=== PATIENT | male | born 1950 | race Caucasian/White ===

== ENCOUNTER → 2020-06-09 08:30 | Outpatient (BNVA) | payer MEDICARE, BC, SELFPAY | PROVIDERS: Family Provider Internal Medicine; PCP Internal Medicine; Visit Provider Internal Medicine | DX: Z00.00 Encounter for general adult medical examination without abnormal findings (principal); R97.20 Elevated prostate specific antigen [PSA] | CPT/HCPCS: 80053; 80061; 84153; 84403; 85025 ==

== ENCOUNTER → 2021-01-20 08:39 | Outpatient (BNVA) | payer MEDICARE, BC, SELFPAY | PROVIDERS: Family Provider Internal Medicine; PCP Internal Medicine; Visit Provider Internal Medicine | DX: R97.20 Elevated prostate specific antigen [PSA] (principal) | CPT/HCPCS: 84153 ==

== ENCOUNTER 2021-03-07 04:35 | Emergency (ER) | payer MEDICARE, BC, SELFPAY ==
[2021-03-07 04:44] VITALS: BP 129/74; PULSE 95; RESP 16; TEMP 37.6; O2SAT 94; BMI 35.1
--- NOTE | 2021-03-07 04:44 | CTR_ITS ---
PROCEDURE INFORMATION: Exam: CT Abdomen And Pelvis Without Contrast Exam date and time: 03/07/2021 4:44 AM Age: 70 years old Clinical indication: Other: Low back pain; Prior surgery; Surgery date: 6+ months; Surgery type: Appy, hernia, RT hip; Additional info: Flank pain TECHNIQUE: Imaging protocol: Computed tomography of the abdomen and pelvis without contrast. Radiation optimization: All CT scans at this facility use at least one of these dose optimization techniques: automated exposure control; mA and/or kV adjustment per patient size (includes targeted exams where dose is matched to clinical indication); or iterative reconstruction. COMPARISON: CT abdomen pelvis w con* [id number] 03/03/2017 5:47 AM RADIATION DOSE METRICS: Total DLP (mGy-cm): 1844.27 FINDINGS: Lungs: The lung bases are clear. No effusion Liver: Normal. No mass. Gallbladder and bile ducts: No wall thickening, pericholecystic fluid or stones. Pancreas: Normal. No ductal dilation. Spleen: Normal. No splenomegaly. Adrenal glands: Normal. No mass. Kidneys and ureters: Normal. No hydronephrosis. Stomach and bowel: Diverticulosis without diverticulitis. Appendix: Appendix has been removed. Intraperitoneal space: Unremarkable. No free air. No significant fluid collection. Vasculature: Unremarkable. No abdominal aortic aneurysm. Lymph nodes: Unremarkable. No enlarged lymph nodes. Urinary bladder: Unremarkable as visualized. Reproductive: Unremarkable as visualized. Bones/joints: There is a right hip prosthesis which obscures portions of the pelvis due to streak artifact. Soft tissues: Fat containing umbilical hernia. CT/CT kidney stone [id number] IMPRESSION: 1. No cause for acute pain is identified. 2. Diverticulosis without diverticulitis. 3. Fat containing umbilical hernia. Radiation Dose CTDIVOL = (mGy): DLP = 1844.27 (mGy-cm)
--- NOTE | 2021-03-07 05:07 | W.ED.MALEGU ---
Documented by User: Carlos Manuel Machado DO 03/07/21 06:03 HPI - Male Genitourinary General: Chief complaint: Urogenital-Male Stated complaint: FEELS LIKE KIDNEY PAIN Time Seen by Provider: 03/07/21 04:44 History of Present Illness: HPI Narrative: 70-year-old male with a history of pyelonephritis and urosepsis. He presents with bilateral flank pain that started last night, and is worsened across the night. He began to get chills and body aches as well through the night. He notes that his back and kidneys hurt 1 day last week, but he did not have the chills or the nausea he has now. Complaint: other Onset (ago): hour(s) Duration: constant and progressively worsening Location: right flank and left flank Severity: moderate Quality: aching Relieving factors: none Exacerbating factors: none Associated symptoms: Reports fevers/chills, nausea and other; Deny hematuria, rash or vomiting Review of Systems Const: Reports: chills and body aches; Denies: fever(s) Card: Denies: chest pain or palpitations Resp: Denies: dyspnea, productive cough, non-productive cough or wheezing GI: Reports: abdominal pain and nausea; Denies: vomiting : Reports: flank pain, urinary frequency and urinary urgency; Denies: hematuria Neuro: Denies: headache(s) PFS ED PFSH: Surgical History (Updated 03/01/21 @ 14:37 by Neo Guan MD) H/O rotator cuff surgery History of appendectomy 2017 History of back surgery 2017 History of colonoscopy 2018 History of knee surgery bilateral surgery History of right hip replacement Status post right inguinal hernia repair Family History Father Cancer Mother Cancer Social History Smoking and tobacco status: current some day smoker cigars Alcohol intake: current Alcohol intake frequency: holidays/special occasions only Alcohol type: beer service: No History of recent travel: No Physical Exam Const: GENERAL APPEARANCE: well developed ORIENTATION/CONSCIOUSNESS: Yes oriented to person, Yes oriented to place and Yes oriented to time HENMT: COMMON NORMALS: normocephalic, external ears normal and Normal external nose present HEAD & SCALP: normocephalic FACE & SINUS: normal facial exam NOSE: Normal external nose present and No nasal discharge present EXTERNAL EAR: Yes external ears normal Eye: COMMON NORMALS: Equal, round and reactive pupils present and EOMs intact bilaterally EYELID: eyelids normal PUPIL: Yes Equal, round and reactive pupils present Chest: COMMONS NORMALS: normal inspection of the chest CHEST: No tenderness Resp: COMMON NORMALS: clear to auscultation bilaterally EFFORT & INSPECTION: No tachypneic, No respiratory distress, No retractions, No uses accessory muscles and No tracheal deviation AUSCULTATION: clear to auscultation bilaterally, no rhonchi, no wheezes and lung sounds not diminished Cardio: COMMON NORMALS: regular rate and regular rhythm RATE: regular rate RHYTHM: regular rhythm HEART SOUNDS: no murmurs PERIPHERAL PULSES: radial pulses present GI: INSPECTION: No abdominal distension AUSCULTATION: No Hyperactive bowel sounds present and No Hypoactive bowel sounds present PALPATION: Yes Guarding due to palpation present (GI) and No Rigid due to palpation PERCUSSION: no dullness to percussion and no tympanic to percussion : BLADDER/KIDNEY EXAM: Yes CVA tenderness bilateral Back/Pelvis: GENERAL BACK: Yes CVA tenderness Neuro: SENSORIUM/ORIENTATION: Yes oriented to person, Yes oriented to place and Yes oriented to time Psych: COMMON NORMALS: mental status grossly normal Skin: COMMON NORMALS: no rashes or lesions noted GENERAL SKIN EXAM: no rashes or lesions noted Course Vital Signs: Vital signs: Vital Signs Temperature 99.6 F 03/07/21 04:44 Pulse Rate 95 03/07/21 04:44 Respiratory Rate 18 03/07/21 06:48 Blood Pressure 129/74 03/07/21 04:44 Pulse Oximetry 97 03/07/21 06:48 MDM - Male MDM Narrative: Medical decision making narrative: 70-year-old male with a temperature, bilateral flank pain. CBC and kidney stone protocol CT are pending. He will be checked out to Dr. Ramsay at shift change. Lab Data: Labs: Lab Results 03/07/21 03/07/21 03/07/21 Range/Units 05:22 05:22 05:22 WBC Cancelled Corrected WBC Cancelled RBC Cancelled Hgb Cancelled Hct Cancelled MCV Cancelled MCH Cancelled MCHC Cancelled RDW Cancelled Plt Count Cancelled MPV Cancelled Gran % Cancelled Neut % (Auto) Cancelled Lymph % (Auto) Cancelled [place] % (Auto) Cancelled Eos % (Auto) Cancelled Baso % (Auto) Cancelled Neut # (Auto) Cancelled Lymph # (Auto) Cancelled [place] # (Auto) Cancelled Eos # (Auto) Cancelled Baso # (Auto) Cancelled Absolute Gran (aut o) Cancelled Nucleated RBC % (a uto) Cancelled Nucleated RBCs # Cancelled Sodium 136 (136-145) mmol/L Potassium 4.6 (3.5-5.1) mmol/L Chloride 102 (98-107) mmol/L Carbon Dioxide 21 L (22-29) mmol/L Anion Gap 17.6 (5-19) BUN 16 (8-23) mg/dL Creatinine 1.0 (0.7-1.2) mg/dL GFR Calculation 73.9 L (90-130) mL/min Glucose 104 (65-115) mg/dL Calculated Osmolal ity 283 L (285-295) mOsm/k g Calcium 8.8 (8.5-10.5) mg/dL Total Bilirubin 0.5 (0.15-1.2) mg/dL AST 28 (0-40) U/L ALT 25 (0-41) U/L Alkaline Phosphata se 66 (40-130) IU/L C-Reactive Protein 7.2 H (0.0-4.9) mg/L Total Protein 7.2 (6.6-8.7) g/dL Albumin 4.4 (3.5-5.2) g/dL Globulin 2.8 (1.3-4.6) g/dL Lipase 24 (13-60) U/L Urine Color Yellow (Yellow) Urine Appearance Clear (CLEAR) Urine pH 5 (5-7) Ur Specific Gravit y 1.015 (1.005-1.030) Urine Protein Neg (Negative) Urine Glucose (UA) Norm (Normal) Urine Ketones 1+ H (Negative) Urine Blood 2+ H (Negative) Urine Nitrate Negative (Negative) Urine Bilirubin Neg (Negative) Urine Urobilinogen Norm (Negative) mg/dL Ur Leukocyte Jacklyn ase Negative (Negative) Urine RBC 0-4 H (0-2) /hpf Urine WBC None (0-5) /hpf Ur Squamous Epith Cells None (0-5) /hpf Amorphous Sediment Not Reportable Urine Bacteria Trace (NONE) /hpf SARS-CoV-2 Ag (Rap id) (Negative) 03/07/21 03/07/21 03/07/21 Range/Units 06:05 07:48 08:25 WBC Cancelled 3.1 L Corrected WBC Cancelled RBC Cancelled 5.08 Hgb Cancelled 14.8 Hct Cancelled 43.8 MCV Cancelled 86.2 MCH Cancelled 29.1 MCHC Cancelled 33.8 RDW Cancelled 12.9 Plt Count Cancelled 149 MPV Cancelled 10.7 H Gran % Cancelled Neut % (Auto) Cancelled 69.9 Lymph % (Auto) Cancelled 18.8 [place] % (Auto) Cancelled 10.4 Eos % (Auto) Cancelled 0.0 Baso % (Auto) Cancelled 0.6 Neut # (Auto) Cancelled 2.15 Lymph # (Auto) Cancelled 0.6 L [place] # (Auto) Cancelled 0.3 Eos # (Auto) Cancelled 0.0 Baso # (Auto) Cancelled 0.0 Absolute Gran (aut o) Cancelled Nucleated RBC % (a uto) Cancelled 0 Nucleated RBCs # Cancelled 0.0 Sodium (136-145) mmol/L Potassium (3.5-5.1) mmol/L Chloride (98-107) mmol/L Carbon Dioxide (22-29) mmol/L Anion Gap (5-19) BUN (8-23) mg/dL Creatinine (0.7-1.2) mg/dL GFR Calculation (90-130) mL/min Glucose (65-115) mg/dL Calculated Osmolal ity (285-295) mOsm/k g Calcium (8.5-10.5) mg/dL Total Bilirubin (0.15-1.2) mg/dL AST (0-40) U/L ALT (0-41) U/L Alkaline Phosphata se (40-130) IU/L C-Reactive Protein (0.0-4.9) mg/L Total Protein (6.6-8.7) g/dL Albumin (3.5-5.2) g/dL Globulin (1.3-4.6) g/dL Lipase (13-60) U/L Urine Color (Yellow) Urine Appearance (CLEAR) Urine pH (5-7) Ur Specific Gravit y (1.005-1.030) Urine Protein (Negative) Urine Glucose (UA) (Normal) Urine Ketones (Negative) Urine Blood (Negative) Urine Nitrate (Negative) Urine Bilirubin (Negative) Urine Urobilinogen (Negative) mg/dL Ur Leukocyte Jacklyn ase (Negative) Urine RBC (0-2) /hpf Urine WBC (0-5) /hpf Ur Squamous Epith Cells (0-5) /hpf Amorphous Sediment Urine Bacteria (NONE) /hpf SARS-CoV-2 Ag (Rap id) Negative (Negative) Discharge Plan Discharge Patient Disposition: Home Clinical Impression: Chills Low back pain Qualifiers: Chronicity: unspecified Back pain laterality: unspecified Sciatica presence: without sciatica Qualified Code(s): M54.5 - Low back pain Leukopenia Qualifiers: Leukopenia type: other Qualified Code(s): D72.818 - Other decreased white blood cell count Condition: Stable Prescriptions: New doxycycline hyclate 100 mg tablet 100 mg PO BID 10 Days Qty: 20 RF: 0 No Action gabapentin 100 mg capsule 100 mg PO TID 30 Days Qty: 90 RF: 1 Fluarix Quad (PF) 60 mcg (15 mcg x 4)/0.5 mL syringe 0.5 ml IM ONCE Qty: 0.5 RF: 0 multivitamin [One Daily Multivitamin] Tablet 1 tab PO DAILY RF: 0 Discharge Orders: Discharge ED (Routine); Ordered 03/07/21 Ordered By: Janet Ramsay Referrals: Charles Barcenas MD [Primary Care Provider] - Discharge Diet: Advance as tolerated and Usual diet Discharge Activity: Resume usual activity Patient Instructions: Lyme Disease (ED), Tick Bite (ED), [place] Spotted Fever (ED) Activity Restrictions/Additional Instructions: If you notice increasing fevers headaches body aches this could possibly be tick illness and recommend you start the doxycycline make sure you take all of it. You could use Tylenol or ibuprofen as well. Follow-up with your primary care physician this week return to the ER if worsening of symptoms or any changes Thank you for choosing [facility] for your healthcare needs today. Please realize this is an emergency room and that we are providing you with a medical screening exam and this may not be complete and all inclusive of all the testing and or work up that you may need to determine your ailment or severity of your illness. It is very important that you follow up as instructed or that you return to the Emergency Department should you have concerns or if your condition changes or worsens in any way. Coding Level of Care Code ED Automotive Machinist for Chg Fwd Exam Comprehensive Documented by User: Janet Ramsay, 03/07/21 09:43 HPI - Male Genitourinary General: Chief complaint: Urogenital-Male Stated complaint: FEELS LIKE KIDNEY PAIN Time Seen by Provider: 03/07/21 04:44 [facility] ED PFSH: Surgical History (Updated 03/01/21 @ 14:37 by Neo Guan MD) H/O rotator cuff surgery History of appendectomy 2017 History of back surgery 2017 History of colonoscopy 2018 History of knee surgery bilateral surgery History of right hip replacement Status post right inguinal hernia repair Family History Father Cancer Mother Cancer Social History Smoking and tobacco status: current some day smoker cigars Alcohol intake: current Alcohol intake frequency: holidays/special occasions only Alcohol type: beer service: No History of recent travel: No Course Vital Signs: Vital signs: Vital Signs Temperature 99.6 F 03/07/21 04:44 Pulse Rate 95 03/07/21 04:44 Respiratory Rate 18 03/07/21 06:48 Blood Pressure 129/74 03/07/21 04:44 Pulse Oximetry 97 03/07/21 06:48 MDM - Male MDM Narrative: Medical decision making narrative: Patient's temp was 99.6 his urine only had a little bit of blood on it he said he did have a little bit of right sided groin pain the other day and was urinating frequently discussed with him the possibility that he could have passed a kidney stone although there is no other residual lithiasis noted on CT. CTs really unremarkable. He did have low back pain chills low-grade temp his white count is a little bit low and his platelets are on the lower and discussed with him Covid versus tick bites he has had 2 tick bites and a spider bite about a month ago no rashes. I discussed with him Covid he does not have any known exposures he has not been vaccinated he agreed to get it Covid test which was negative. Discussed with him the possibility of early findings of ehrlichiosis or [place] spotted fever present with low white counts body aches fevers chills. So at this point I am going to write amount of prescription for doxycycline and discussed with him if he seems that he is getting worse then he will go ahead and start that for possible tick illness I initially thought about putting him on some Cipro since he has a history of urosepsis however he has no bacteria in his urine. Patient got a liter fluids he is very anxious to leave he feels he is appropriate to drive he does not appear to be under the influence from his previous medications Lab Data: Labs: Lab Results 03/07/21 03/07/21 03/07/21 Range/Units 05:22 05:22 05:22 WBC Cancelled Corrected WBC Cancelled RBC Cancelled Hgb Cancelled Hct Cancelled MCV Cancelled MCH Cancelled MCHC Cancelled RDW Cancelled Plt Count Cancelled MPV Cancelled Gran % Cancelled Neut % (Auto) Cancelled Lymph % (Auto) Cancelled [place] % (Auto) Cancelled Eos % (Auto) Cancelled Baso % (Auto) Cancelled Neut # (Auto) Cancelled Lymph # (Auto) Cancelled [place] # (Auto) Cancelled Eos # (Auto) Cancelled Baso # (Auto) Cancelled Absolute Gran (aut o) Cancelled Nucleated RBC % (a uto) Cancelled Nucleated RBCs # Cancelled Sodium 136 (136-145) mmol/L Potassium 4.6 (3.5-5.1) mmol/L Chloride 102 (98-107) mmol/L Carbon Dioxide 21 L (22-29) mmol/L Anion Gap 17.6 (5-19) BUN 16 (8-23) mg/dL Creatinine 1.0 (0.7-1.2) mg/dL GFR Calculation 73.9 L (90-130) mL/min Glucose 104 (65-115) mg/dL Calculated Osmolal ity 283 L (285-295) mOsm/k g Calcium 8.8 (8.5-10.5) mg/dL Total Bilirubin 0.5 (0.15-1.2) mg/dL AST 28 (0-40) U/L ALT 25 (0-41) U/L Alkaline Phosphata se 66 (40-130) IU/L C-Reactive Protein 7.2 H (0.0-4.9) mg/L Total Protein 7.2 (6.6-8.7) g/dL Albumin 4.4 (3.5-5.2) g/dL Globulin 2.8 (1.3-4.6) g/dL Lipase 24 (13-60) U/L Urine Color Yellow (Yellow) Urine Appearance Clear (CLEAR) Urine pH 5 (5-7) Ur Specific Gravit y 1.015 (1.005-1.030) Urine Protein Neg (Negative) Urine Glucose (UA) Norm (Normal) Urine Ketones 1+ H (Negative) Urine Blood 2+ H (Negative) Urine Nitrate Negative (Negative) Urine Bilirubin Neg (Negative) Urine Urobilinogen Norm (Negative) mg/dL Ur Leukocyte Jacklyn ase Negative (Negative) Urine RBC 0-4 H (0-2) /hpf Urine WBC None (0-5) /hpf Ur Squamous Epith Cells None (0-5) /hpf Amorphous Sediment Not Reportable Urine Bacteria Trace (NONE) /hpf SARS-CoV-2 Ag (Rap id) (Negative) 03/07/21 03/07/21 03/07/21 Range/Units 06:05 07:48 08:25 WBC Cancelled 3.1 L Corrected WBC Cancelled RBC Cancelled 5.08 Hgb Cancelled 14.8 Hct Cancelled 43.8 MCV Cancelled 86.2 MCH Cancelled 29.1 MCHC Cancelled 33.8 RDW Cancelled 12.9 Plt Count Cancelled 149 MPV Cancelled 10.7 H Gran % Cancelled Neut % (Auto) Cancelled 69.9 Lymph % (Auto) Cancelled 18.8 [place] % (Auto) Cancelled 10.4 Eos % (Auto) Cancelled 0.0 Baso % (Auto) Cancelled 0.6 Neut # (Auto) Cancelled 2.15 Lymph # (Auto) Cancelled 0.6 L [place] # (Auto) Cancelled 0.3 Eos # (Auto) Cancelled 0.0 Baso # (Auto) Cancelled 0.0 Absolute Gran (aut o) Cancelled Nucleated RBC % (a uto) Cancelled 0 Nucleated RBCs # Cancelled 0.0 Sodium (136-145) mmol/L Potassium (3.5-5.1) mmol/L Chloride (98-107) mmol/L Carbon Dioxide (22-29) mmol/L Anion Gap (5-19) BUN (8-23) mg/dL Creatinine (0.7-1.2) mg/dL GFR Calculation (90-130) mL/min Glucose (65-115) mg/dL Calculated Osmolal ity (285-295) mOsm/k g Calcium (8.5-10.5) mg/dL Total Bilirubin (0.15-1.2) mg/dL AST (0-40) U/L ALT (0-41) U/L Alkaline Phosphata se (40-130) IU/L C-Reactive Protein (0.0-4.9) mg/L Total Protein (6.6-8.7) g/dL Albumin (3.5-5.2) g/dL Globulin (1.3-4.6) g/dL Lipase (13-60) U/L Urine Color (Yellow) Urine Appearance (CLEAR) Urine pH (5-7) Ur Specific Gravit y (1.005-1.030) Urine Protein (Negative) Urine Glucose (UA) (Normal) Urine Ketones (Negative) Urine Blood (Negative) Urine Nitrate (Negative) Urine Bilirubin (Negative) Urine Urobilinogen (Negative) mg/dL Ur Leukocyte Jacklyn ase (Negative) Urine RBC (0-2) /hpf Urine WBC (0-5) /hpf Ur Squamous Epith Cells (0-5) /hpf Amorphous Sediment Urine Bacteria (NONE) /hpf SARS-CoV-2 Ag (Rap id) Negative (Negative) Discharge Plan Discharge Patient Disposition: Home Clinical Impression: Chills Low back pain Qualifiers: Chronicity: unspecified Back pain laterality: unspecified Sciatica presence: without sciatica Qualified Code(s): M54.5 - Low back pain Leukopenia Qualifiers: Leukopenia type: other Qualified Code(s): D72.818 - Other decreased white blood cell count Condition: Stable Prescriptions: New doxycycline hyclate 100 mg tablet 100 mg PO BID 10 Days Qty: 20 RF: 0 No Action gabapentin 100 mg capsule 100 mg PO TID 30 Days Qty: 90 RF: 1 Fluarix Quad (PF) 60 mcg (15 mcg x 4)/0.5 mL syringe 0.5 ml IM ONCE Qty: 0.5 RF: 0 multivitamin [One Daily Multivitamin] Tablet 1 tab PO DAILY RF: 0 Discharge Orders: Discharge ED (Routine); Ordered 03/07/21 Ordered By: Janet Ramsay Referrals: Charles Barcenas MD [Primary Care Provider] - Discharge Diet: Advance as tolerated and Usual diet Discharge Activity: Resume usual activity Patient Instructions: Lyme Disease (ED), Tick Bite (ED), [place] Spotted Fever (ED) Activity Restrictions/Additional Instructions: If you notice increasing fevers headaches body aches this could possibly be tick illness and recommend you start the doxycycline make sure you take all of it. You could use Tylenol or ibuprofen as well. Follow-up with your primary care physician this week return to the ER if worsening of symptoms or any changes Thank you for choosing [facility] for your healthcare needs today. Please realize this is an emergency room and that we are providing you with a medical screening exam and this may not be complete and all inclusive of all the testing and or work up that you may need to determine your ailment or severity of your illness. It is very important that you follow up as instructed or that you return to the Emergency Department should you have concerns or if your condition changes or worsens in any way. Coding Level of Care Code ED Automotive Machinist for Adam Pollard Exam Comprehensive
[2021-03-07 05:40] LABS: Bilirubin Urine Neg (Negative); Blood Urine 2+ (Negative); Glucose Urine UA Norm (Normal); Ketones Urine 1+ (Negative); Leukocyte Esterase Urine Negative (Negative); Nitrate Urine Negative (Negative); Protein Urine Neg (Negative); Specific Gravity, Urine 1.015 (1.005-1.030); Urine Appearance Clear (CLEAR); Urine Color Yellow (Yellow); Urobilinogen Urine Norm (Negative); pH Urine 5 (5-7)
[2021-03-07 05:41] LABS: Add Urine Microscopic? YES; RBC Urine 0-4 /hpf (0-2)
[2021-03-07 05:42] LABS: Add Urine Culture? No; Bacteria Urine TRACE /hpf
[2021-03-07 05:47] LABS: Alanine Aminotransferase 25 U/L (0-41); Albumin Level 4.4 g/dL (3.5-5.2); Alkaline Phosphatase 66 IU/L (40-130); Blood Urea Nitrogen 16 mg/dL (8-23); C Reactive Protein 7.2 mg/L (0.0-4.9); Calcium 8.8 mg/dL (8.5-10.5); Carbon Dioxide 21 mmol/L (22-29); Chloride 102 mmol/L (98-107); Globulin 2.8 g/dL (1.3-4.6); Glomerular Filtration Rate 73.9 mL/min (90-130); Glucose 104 mg/dL (65-115); Lipase 24 U/L (13-60); Osmolality Calculated 283 mOsm/kg (285-295); Sodium 136 mmol/L (136-145); Total Bilirubin 0.5 mg/dL (0.15-1.2); Total Protein 7.2 g/dL (6.6-8.7)
[2021-03-07 05:50] LABS: Anion Gap 17.6 (5-19); Aspartate Amino Transferase 28 U/L (0-40); Potassium 4.6 mmol/L (3.5-5.1)
[2021-03-07] MEDS: sodium chloride 0.9% 1,000 ML 999 ML IV (06:47)
[2021-03-07 06:48] VITALS: RESP 18; O2SAT 97
[2021-03-07] MEDS: morphine 4 mg/mL SDV 1 mL IVP (06:48)
[2021-03-07] MEDS: ondansetron 2 mg/ML SDV 2 mL 4 MG IVP (06:48)
[2021-03-07] MEDS: cefTRIAXone 1,000 MG in sodium chloride 0.9% (plus) 50 ML 100 MG IV (07:34)
[2021-03-07] MEDS: ketorolac 30 mg/mL INJ IVP (07:34)
[2021-03-07 07:52] LABS: Basophils % 0.6 %; Hematocrit 43.8 % (42.0-52.0); Hemoglobin 14.8 g/dL (11.7-16.6); Lymphocytes # 0.6 10^3/uL (0.8-4.8); Lymphocytes % 18.8 %; Mean Corpuscular HGB Conc 33.8 g/dL (30.0-36.0); Mean Corpuscular Hemoglobin 29.1 pg (28.0-34.0); Mean Corpuscular Volume 86.2 fL (80-94); Mean Platelet Volume 10.7 fL (7.4-10.4); Monocytes # 0.3 10^3/uL (0.2-0.9); Monocytes % 10.4 %; Neutrophils # 2.15 10^3/uL (1.8-7.7); Neutrophils % 69.9 %; Nucleated Red Blood Cells % 0 %; Platelet Count 149 10^3/cmm (130-400); Red Blood Count 5.08 10^6/uL (4.1-5.3); Red Cell Distribution Width 12.9 % (12.1-15.1); White Blood Count 3.1 10^3/uL (4.0-10.0)
[2021-03-07 09:22] LABS: SARS Covid-2 Antigen Negative (Negative)
[2021-03-07 10:14] VITALS: BP 126/72; PULSE 91; RESP 20; O2SAT 95
== END 2021-03-07 10:15 | disposition home or self-care (01) ==
PROVIDERS: Emergency Medicine; Emergency Provider Emergency Medicine; PCP Internal Medicine
DX: M54.5 Low back pain (principal); D72.818 Other decreased white blood cell count; R68.83 Chills (without fever); F17.210 Nicotine dependence, cigarettes, uncomplicated
CPT/HCPCS: 36415; 74176; 80053; 81001; 83690; 85025; 86140; 87426; 96361; 96365; 96375; 99284; J0696; J1885; J2270; J2405; J7030

== ENCOUNTER → 2021-06-17 15:47 | Outpatient (BNVA) | payer MEDICARE, BC, SELFPAY | PROVIDERS: PCP Internal Medicine; Visit Provider Internal Medicine | DX: Z00.00 Encounter for general adult medical examination without abnormal findings (principal); R97.20 Elevated prostate specific antigen [PSA] | CPT/HCPCS: 80053; 80061; 84153; 84403 ==

== ENCOUNTER → 2021-09-14 09:45 | Outpatient (BNVA) | payer MEDICARE, BC, SELFPAY | PROVIDERS: PCP Internal Medicine; Visit Provider Nurse Practitioner Family | DX: B97.89 Other viral agents as the cause of diseases classified elsewhere (principal); J01.90 Acute sinusitis, unspecified | CPT/HCPCS: 87635 ==

== ENCOUNTER → 2022-06-16 09:17 | Outpatient (BNVA) | payer MEDICARE, SELFPAY | PROVIDERS: PCP Internal Medicine; Visit Provider Internal Medicine | DX: R97.20 Elevated prostate specific antigen [PSA] (principal); Z00.00 Encounter for general adult medical examination without abnormal findings | CPT/HCPCS: 80048; 80053; 84153; 84403; 85025 ==

== ENCOUNTER → 2023-01-04 09:59 | Outpatient (BNVA) | payer MEDICARE, SELFPAY | PROVIDERS: PCP Internal Medicine; Visit Provider Internal Medicine | DX: R97.20 Elevated prostate specific antigen [PSA] (principal) | CPT/HCPCS: 84153 ==

== ENCOUNTER 2024-06-18 12:02 | Outpatient (CLI) | payer MEDICARE, BC, SELFPAY ==
[2024-06-18 12:41] LABS: Basophils % 0.2 %; Eosinophils # 0.1 10^3/uL (0.0-0.8); Eosinophils % 1.9 %; Hematocrit 41.8 % (37-53); Lymphocytes # 1.3 10^3/uL (0.8-4.8); Lymphocytes % 31.2 %; Mean Corpuscular HGB Conc 33.7 g/dL (30-55); Mean Corpuscular Hemoglobin 28.5 pg (27-33); Mean Corpuscular Volume 84.6 fl (82-101); Mean Platelet Volume 10.5 fL (7.4-10.4); Monocytes # 0.5 10^3/uL (0.2-0.9); Monocytes % 12.1 %; Neutrophils # 2.28 10^3/uL (1.8-7.7); Neutrophils % 54.4 %; Nucleated Red Blood Cells % 0 %; Platelet Count 202 10^3/cmm (157-399); Red Blood Count 4.94 10^6/uL (3.85-5.65); Red Cell Distribution Width 13.7 % (12.1-15.1)
[2024-06-18 13:11] LABS: Prostate Specific Antigen 0.716 ng/mL (0-4); Thyroid Stimulating Hormone 1.25 uIU/mL (0.27-4.20)
[2024-06-18 15:20] LABS: Chol HDL Ratio 3.46 mg/dL (1.0-5.00); Cholesterol 159 mg/dL (0-200); HDL Cholesterol 46 mg/dL (60-100); LDL Cholesterol Calculated 87 mg/dL (50-129); LDL HDL Ratio 1.89 RATIO (0.00-3.22); Triglycerides 132 mg/dL (0-150)
== END 2024-06-18 12:03 | disposition home or self-care (01) ==
PROVIDERS: PCP Internal Medicine; Visit Provider Internal Medicine
DX: C61 Malignant neoplasm of prostate (principal); E29.1 Testicular hypofunction
CPT/HCPCS: 36415; 80061; 84153; 84443; 85025

== ENCOUNTER 2025-01-29 08:25 | Outpatient (CLI) | payer MEDICARE, BC, SELFPAY ==
[2025-01-29 10:12] LABS: Prostate Specific Antigen 0.164 ng/mL (0-4)
== END 2025-01-29 08:26 | disposition home or self-care (01) ==
LOC: LAB 08:29
PROVIDERS: PCP Internal Medicine; Visit Provider Urology
DX: C61 Malignant neoplasm of prostate (principal)
CPT/HCPCS: 36415; 84153

== ENCOUNTER → 2025-02-05 07:39 | Outpatient (BNVA) | payer MEDICARE, BC, SELFPAY | PROVIDERS: PCP Internal Medicine; Visit Provider Podiatrist Foot & Ankle Surgery | DX: M79.671 Pain in right foot (principal); M21.621 Bunionette of right foot; M77.51 Other enthesopathy of right foot and ankle; M20.41 Other hammer toe(s) (acquired), right foot | CPT/HCPCS: 73630; 99204 ==